=== PATIENT | male | born 1990 | race Caucasian/White ===

== ENCOUNTER 2017-08-23 01:30 | Emergency (ER) | payer OTHER ==
[~2017-08-23] VITALS: Ht 193 cm; Wt 102.1 kg
[2017-08-23 01:50] VITALS: BP 134/84
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
[2017-08-23] MEDS ORDERED: IBUPROFEN 600 MG TABLET. PO ONE (02:15)
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
[2017-08-23] MEDS ORDERED: OXYC-323 PO (02:55)
--- NOTE | 2017-08-23 07:17 | RAD ---
Thoracic spine, 3 views, 08/23/2017: History: Back pain There is a mild right convexity thoracic scoliosis. The vertebral heights are well-maintained. No fracture or destructive bony lesion is seen. The paraspinous soft tissues are unremarkable. IMPRESSION: 1. Thoracic scoliosis. 2. No acute abnormality is detected.
== END 2017-08-23 03:06 | disposition home or self-care (01) ==
LOC: ER 01:30
DX: S29.012A Strain of muscle and tendon of back wall of thorax, initial encounter (principal); Z91.040 Latex allergy status; V43.52XA Car driver injured in collision with other type car in traffic accident, initial encounter; Y93.I9 Activity, other involving external motion; Y92.410 Unspecified street and highway as the place of occurrence of the external cause; Y99.8 Other external cause status
CPT/HCPCS: 72072; 72128; 99284-25